=== PATIENT | female | born 1960 | race Asian ===

== ENCOUNTER 2016-12-02 07:14 | Day surgery (SDC) | payer OTHER ==
[2016-11-29 11:10] VITALS: Ht 152.4 cm; Wt 65.0 kg
[2016-12-02] VITALS (10 sets, daily range): BP systolic 118–154; BP diastolic 70–82; PULSE 54–63; RESP 17–18
[~2016-12-02] VITALS: Ht 152.4 cm; Wt 65.0 kg
[~2016-12-02 07:14] MED LIST: BUPIVACAINE 0.25%/EPI (SDV) 30 ML INJ INJ ONE; BUPIVACAINE 0.25%/EPI (SDV) 30 ML INJ ONE
--- NOTE | 2016-12-02 08:06 | RADRPT ---
PROCEDURE: XR Chest. CLINICAL INDICATION: Preoperative TECHNIQUE: Single frontal view of the chest was obtained COMPARISON: None FINDINGS: The heart and mediastinum are within normal limits. There is mild left lower lobe linear atelectasis. The lungs are otherwise clear. There is no pleural effusion or pneumothorax. RPTAT: AA IMPRESSION: Mild left lower lobe linear atelectasis. .Lawrence Lemon MD, MD Date Time Electronically viewed and signed by .Lawrence Lemon MD, MD on 12/02/2016 08:06 .S/
[2016-12-02 08:28] LABS: BASOPHIL # 0.1 10^3/ul (0.0-0.1); BASOPHILS % 1.4 % (0.0-2.0); EOSINOPHILS # 0.1 10^3/ul (0.0-0.5); EOSINOPHILS % 2.4 % (0.0-7.0); HEMATOCRIT 40.3 % (37.0-47.0); HEMOGLOBIN 13.1 g/dl (12.0-16.0); LYMPHOCYTES # 1.9 10^3/ul (0.8-2.9); LYMPHOCYTES % 39.7 % (15.0-51.0); MEAN CORPUSCULAR HEMOGLOBIN 25.7 pg (29.0-33.0); MEAN CORPUSCULAR HGB CONC 32.5 g/dl (32.0-37.0); MEAN CORPUSCULAR VOLUME 79.1 fl (82.0-101.0); MEAN PLATELET VOLUME 9.8 fl (7.4-10.4); MONOCYTE # 0.3 10^3/ul (0.3-0.9); MONOCYTES % 6.1 % (0.0-11.0); NEUTROPHIL # 2.5 10^3/ul (1.6-7.5); NEUTROPHILS % 50.4 % (39.0-77.0); PLATELET COUNT 271 10^3/UL (140-440); RED BLOOD COUNT 5.09 10^6/ul (4.20-5.40); RED CELL DISTRIBUTION WIDTH 15.2 % (11.5-14.5); UNCORRECTED WBC 4.9 10^3/ul (4.8-10.8); WHITE BLOOD COUNT 4.9 10^3/ul (4.8-10.8)
[2016-12-02 08:33] LABS: CONDITION 1; LH ANALYZER COMMENTS 1
[2016-12-02 08:44] LABS: INR 0.94; PROTIME 12.6 Sec (12.2-14.2)
[2016-12-02 08:45] LABS: PARTIAL THROMBOPLASTIN TIME 33.7 Sec (25.0-35.0)
[2016-12-02 08:56] LABS: CALCIUM 9.1 mg/dl (8.4-10.2); CREATININE 0.73 mg/dl (0.44-1.00); POTASSIUM 3.9 mmol/L (3.5-5.1)
[2016-12-02] MEDS ORDERED: SOD CHLORIDE 0.9% 1,000 ML IV ONE (10:30)
[2016-12-02] MEDS ORDERED: CEFAZOLIN 2 GM/50 ML (PMX) 50 ML IVPB ONE (10:30)
--- NOTE | 2016-12-02 11:47 | HPN ---
Date/Time of Note Date/Time of Note DATE: 12/02/16 TIME: 11:47 Interval H&P Admission Note Pt. seen H&P reviewed: No system changes NATASHA FRANCOIS MD Dec 02, 2016 11:47
[2016-12-02] MEDS ORDERED: PROPOFOL 20 ML ONE (12:02)
[2016-12-02] MEDS ORDERED: MIDAZOLAM 1 MG/ML 2 ML INJ ONE (12:02)
[2016-12-02] MEDS ORDERED: FENTAnyl 50 MCG/ML VIAL ONE (12:11)
[2016-12-02] MEDS ORDERED: CEFAZOLIN 1 GM INJ ONE (12:14)
[2016-12-02] MEDS ORDERED: KETOROLAC 30 MG INJ IV PRN (13:00)
[2016-12-02] MEDS ORDERED: ONDANSETRON 4 MG INJ IV PRN (13:00)
--- NOTE | 2016-12-02 16:57 | OPR ---
DATE OF OPERATION: 12/02/2016 PREOPERATIVE DIAGNOSIS: Soft tissue mass of the left lower extremity. POSTOPERATIVE DIAGNOSIS: Soft tissue mass of the left lower extremity. PROCEDURE: Excision soft tissue mass of left lower extremity, less than 1 cm. SURGEON: Natasha Duque MD HARD METALS HAND ENGRAVER: None. ANESTHESIA: Local with MAC. ANESTHESIOLOGIST: Dr. Shelton FLUIDS: Crystalloid. ESTIMATED BLOOD LOSS: Minimal. SPECIMEN: Soft tissue mass of the left lower extremity. INDICATIONS FOR SURGERY: Patient is a 56-year-old female who presented to the office with a severel y painful nodule of the left lower extremity. She states this has been present for the past 2 years ; however, recently has been causing her severe pain. On physical exam, she had a small, less than 1-cm, soft tissue mass palpated on the anterior aspect of the left kidd. She was scheduled for elec tive excision for symptom relief and definitive pathological diagnosis. All risks and benefits of t he procedure including but not limited to wound infection, excessive bleeding, mass recurrence, and the possibility that the procedure and excision may not resolve her pain, were all explained to the patient in full detail. She fully understood and wished to proceed with the procedure. Informed co nsent was obtained. DESCRIPTION OF PROCEDURE: Patient was brought to the operating room and placed supine on the operat ing table. Sequential compression device was placed on the right lower extremity, and a dose of bro ad spectrum perioperative intravenous antibiotics was given. The mass was preoperatively marked and confirmed with the patient in the holding area. After achieving adequate sedation and performance of a surgical timeout, 1% lidocaine local anesthesia was infiltrated around the area of the mass. An incision was then made over the mass using a 15-blade scalpel and carried down through the skin a nd the dermis using sharp dissection and Bovie electrocautery. In the subcutaneous tissues, a firm, likely calcified small lipoma was identified. It was dissected free of surrounding tissues and tra nsected at its base and then passed off the field as specimen. It measured less than 1 cm. Palpati on of the wound cavity was done, and no further masses were identified. There was no other patholog y identified. At this point, the wound cavity was irrigated, and hemostasis was inspected for and noted to be tota l. Further local anesthesia was applied around the skin of the incision site, and the skin was reap proximated using 4-0 Monocryl suture in subcuticular fashion. The incision was cleaned, and Dermabo nd was applied. The patient was awoken from anesthesia and transported to the recovery room in stable condition. All counts were correct at the end of case x2. Dictated By: NATASHA BRANHAM/REINALDO Conf#: [id number] DID#: [id number]
[2016-12-02] MEDS ORDERED: IBUPROFEN 600 MG TAB PO PRN (18:00)
--- NOTE | 2016-12-03 14:37 | RADRPT ---
Vent Rate: 57 bpm RR Interval: 0 msec UT Interval: 178 msec QRS Duration: 88 msec QT Interval: 472 msec QTC Interval: 459 msec P-R-T [place]: 49 - 26 - 8 degrees Sinus bradycardia Otherwise normal ECG Electronically Signed By: Сергей Turcios [id number]
== END 2016-12-02 13:50 | disposition home or self-care (01) ==
LOC: SDS 07:14
PROVIDERS: ATTEND Surgery
DX: D23.72 Other benign neoplasm of skin of left lower limb, including hip (principal)
CPT/HCPCS: 11401; 71010; 80048; 85025; 85610; 85730; 88304; 93005; J0690; J2250; J3010; Z7512; Z7610